=== PATIENT | female | born 1985 ===

== ENCOUNTER 2020-03-06 01:20 | Inpatient (IN) | payer BC ==
[2020-03-06] MEDS ORDERED: OXYTOCIN 20 UNITS in 0.9% NS 20 UNIT/1,000 ML INFUS.BAG IV ONE (02:18)
--- NOTE | 2020-03-06 02:22 | HP ---
Past Medical History - Admission History of Present Illness: 34 yo @ 39 6/7 wks by first trimester ultrasound, EDC 03/07/2020 complicated by: Hep C antibody positive on screen - negative RNA patient presents with chief complaint of contractions, beginning at 2130 that have increased in frequency and intensity. She reports movement, denies leakage of fluid or vaginal bleeding. History Source: Patient Limitations to Obtaining History: No Limitations - Past Medical History Cardiovascular: No: HTN Pulmonary: No: Asthma Gastrointestinal: No: GERD ...: 1 ...Para: 0 - Past Surgical History Past Surgical History: Yes: None Hx Myomectomy: No Hx Transabdominal Cerclage: No - Smoking History Have you smoked in the past 12 months: No - Alcohol/Substance Use Hx Alcohol Use: No History of Substance Use: reports: None Home Medications - Allergies Allergies/Adverse Reactions: Allergies Allergy/AdvReac Type Severity Reaction Status Date / Time No Known Allergies Allergy Verified 03/06/20 02:27 Family Medical History Family History: Denies Review of Systems - Review of Systems Constitutional: reports: No Symptoms Cardiovascular: reports: No Symptoms Gastrointestinal: reports: No Symptoms Genitourinary: reports: No Symptoms Neurological: reports: No Symptoms Psychiatric: reports: No Symptoms Physical Exam - Maternity Constitutional: Yes: Well Nourished, No Distress Neck: Yes: Supple Cardiovascular: Yes: Regular Rate and Rhythm Lungs: Clear to auscultation - Abdominal Exam/OB Number of Fetuses: Single Presentation: Vertex Contractions: Yes Regularity: Regular Intensity: Moderate Heart Rate (range): 140 Category: I Accelerations: Non-Uniform Decelerations: None - Vaginal Exam/OB Vaginal Bleeding: No Speculum Exam: Yes Dilatation (cm): 9 Effacement (%): 100 Amniotic Membrane Status: Ruptured (clear) Amniotic Fluid: Yes: Clear Presentation: Vertex/Position - Physical Exam Extremities: Yes: WNL Edema: No - Labs Lab Results: PNL: A positive, antibody negative; RPR NR; HIV neg x 2; HBS Ag neg; HCV reactive --> Neg HCG RNA (as above); Hg Erica AA; GCT 107; GBS negative Hemorrhage Risk Assessment - Risk Factors Medium Risk Factors: Yes: None High Risk Factors: Yes: None Risk Score: 1 Risk Level: Medium Risk Assessment/Plan 34 yo @ 39 6/7 wks, active labor 1. Admit to L&D 2. Routine labs and COVID swab collected and sent 3. GBS negative 4. Category I FHT 5. Declines offer for epidural 6. Will proceed with expectant management
[2020-03-06] MEDS ORDERED: ELECTROLYTE-148 SOLN 1,000 ML IV SCH (02:30)
[2020-03-06 02:31] VITALS: BMI 31.6
[2020-03-06 02:55] LABS: BASO % 0.5 % (0-2.0); EOS % 0.4 % (0-4.5); HEMATOCRIT 41.7 % (32.4-45.2); HEMOGLOBIN 13.7 GM/dL (10.7-15.3); LYMPH % 17.7 % (8-40); MCH 28.9 pg (25.7-33.7); MEAN CELL VOLUME 87.5 fl (80-96); MEAN PLT VOLUME 10.5 fl (7.5-11.1); MONO % 5.3 % (3.8-10.2); NEUT % 76.1 % (42.8-82.8); PLATELET COUNT 79 K/MM3 (134-434); RBC 4.76 M/mm3 (3.60-5.2); RDW 13.6 % (11.6-15.6); WHITE BLOOD COUNT 8.3 K/mm3 (4.0-10.0)
[2020-03-06 03:12] LABS: POTASSIUM 3.8 mmol/L (3.5-5.1)
[2020-03-06 03:14] LABS: CALCIUM 9.5 mg/dL (8.5-10.1)
[2020-03-06 03:15] LABS: BLOOD UREA NITROGEN 9.5 mg/dL (7-18)
[2020-03-06 03:17] LABS: BILIRUBIN,DIRECT 0.1 mg/dL (0.0-0.2)
[2020-03-06 03:18] LABS: CREATININE 0.6 mg/dL (0.55-1.3)
[2020-03-06 03:19] LABS: BILIRUBIN,TOTAL 0.6 mg/dL (0.2-1)
[2020-03-06 03:20] LABS: TOT PROT 7.1 g/dl (6.4-8.2)
[2020-03-06 03:48] LABS: INR 0.91 (0.83-1.09)
[2020-03-06] MEDS ORDERED: METHYLERGONOVINE MALEATE 0.2 MG/1 ML AMP IM PRN (05:09)
[2020-03-06] MEDS ORDERED: BENZOCAINE 20% 57 GM BOTTLE TP PRN (05:09)
[2020-03-06] MEDS ORDERED: BENZOCAINE 28 GM HEMORRHOIDAL OINTMENT TP PRN (05:09)
[2020-03-06] MEDS ORDERED: BISACODYL 10 MG SUPP.RECT RC PRN (05:09)
[2020-03-06] MEDS ORDERED: WITCH HAZEL 50% (TUCKS) 40 PAD/JAR PAD TP PRN (05:09)
--- NOTE | 2020-03-06 05:13 | PN ---
Delivery - Delivery Vaginal Delivery: No Problems Type of Anesthesia: None Episiotomy/Laceration: 1st degree EBL (cc): 300 Delivery, Single - Stages of Labor Date 1st Stage Initiatied: 03/05/20 Time 1st Stage Initiated: 21:30 Date 2nd Stage Initiated: 03/06/20 Time 2nd Stage Initiated: 03:26 Date of Delivery: 03/06/20 Time of Delivery: 04:29 Date Placenta Delivered: 03/06/20 Time Placenta Delivered: 04:46 Placenta: Yes: Spontaneous - Condition of Infant Gender: Male Position: Left, OA Total Hours ROM (Hrs/Mins): 2 hours / 26 minutes - 1 Minute Total Score: 8 5 Minutes Total Score: 9 - [place] Feeding Plan Initial Plan: Elected not to breastfeed exclusively throughout hospitalization Remarks - Remarks Remarks: Patient progressed to fully dilated and at 0429 via delivered a viable male in SKYE position, APGARs 8,9. Weight and length unknown at this time. Head delivered spontaneously followed by shoulders and body without difficulty. with spontaneous cry and placed on mother's abdomen. Nose and mouth was bulb suctioned. Cord was clamped and cut. Perineum and vagina examined, a first degree laceration was noted and repaired in the usual fashion. Placenta was delivered spontaneously and intact. 20 units of pitocin in 1 L IVF was given. All counts correct x 2. Mother and infant stable in LDR. EBL 300cc.
[2020-03-06] MEDS ORDERED: OXYTOCIN 20 UNITS in 0.9% NS 20 UNIT/1,000 ML INFUS.BAG IV SCH (05:15)
[2020-03-06 05:45] LABS: CORD BASE EXCESS -7.3 mmol/L (0-2); CORD HCO3 19.7 mmHg (20-29); CORD PCO2 45.1 mmHg (30-78); CORD pH 7.259 (7.14-7.44)
[2020-03-06 05:52] LABS: CORD BASE EXCESS -11.6 mmol/L (0-2); CORD HCO3 19.3 mmHg (20-29); CORD PCO2 64.6 mmHg (30-78); CORD pH 7.094 (7.14-7.44)
[2020-03-06] MEDS: IBUPROFEN 600 MG TABLET (FP) PO PRN ×3 (08:30→20:10)
[2020-03-06] MEDS: ACETAMINOPHEN 325 MG TABLET (FP) PO PRN ×3 (08:31→20:09)
[2020-03-06] MEDS: PRENATAL VITAMINS W/ FOLIC ACID TABLET (FP) PO SCH (09:25)
[2020-03-07] MEDS: ACETAMINOPHEN 325 MG TABLET (FP) PO PRN (08:27)
[2020-03-07] MEDS: IBUPROFEN 600 MG TABLET (FP) PO PRN (08:27)
[2020-03-07 08:29] LABS: BASO % 0.4 % (0-2.0); EOS % 1.3 % (0-4.5); HEMATOCRIT 34.9 % (32.4-45.2); HEMOGLOBIN 11.5 GM/dL (10.7-15.3); LYMPH % 24.7 % (8-40); MCH 29.1 pg (25.7-33.7); MEAN PLT VOLUME 11.4 fl (7.5-11.1); NEUT % 65.6 % (42.8-82.8); PLATELET COUNT 79 K/MM3 (134-434); RBC 3.97 M/mm3 (3.60-5.2); RDW 13.7 % (11.6-15.6); WHITE BLOOD COUNT 10.2 K/mm3 (4.0-10.0)
--- NOTE | 2020-03-07 09:22 | PN ---
Post Progress Note - Subjective Subjective: Patient without acute complaints. Reports tolerating oral intake without nausea or vomiting. Ambulating without dizziness. Denies fevers or chills. Pain well controlled with oral pain medication. without difficulty. Passing flatus. Type of Delivery: Vital Signs: Vital Signs Temperature 99.4 F 03/06/20 22:00 Pulse Rate 92 H 03/06/20 22:00 Respiratory Rate 18 03/06/20 22:00 Blood Pressure 120/77 03/06/20 22:00 O2 Sat by Pulse Oximetry (%) Breast Exam: Yes: Soft Uterus: Yes: Fundus Firm, Fundus below umbilicus Abdomen/GI: Yes: Abdomen soft, Passing flatus, Tolerating PO. No: Abdominal Distention, Tender Lochia: Yes: Rubra Lochia, amount: Moderate Extremities: Yes: Calves non-tender, Edema (trace) Perineum: Yes: Laceration Activity: Ambulating - Labs Labs: CBC WBC 10.2 K/mm3 (4.0-10.0) H 03/07/20 07:15 RBC 3.97 M/mm3 (3.60-5.2) 03/07/20 07:15 Hgb 11.5 GM/dL (10.7-15.3) 03/07/20 07:15 Hct 34.9 % (32.4-45.2) D 03/07/20 07:15 MCV 88.0 fl (80-96) 03/07/20 07:15 MCH 29.1 pg (25.7-33.7) 03/07/20 07:15 MCHC 33.0 g/dl (32.0-36.0) 03/07/20 07:15 RDW 13.7 % (11.6-15.6) 03/07/20 07:15 Plt Count 79 K/MM3 (134-434) L 03/07/20 07:15 MPV 11.4 fl (7.5-11.1) H 03/07/20 07:15 Absolute Neuts (auto) 6.7 K/mm3 (1.5-8.0) 03/07/20 07:15 Neutrophils % 65.6 % (42.8-82.8) 03/07/20 07:15 Lymphocytes % 24.7 % (8-40) D 03/07/20 07:15 Monocytes % 8.0 % (3.8-10.2) 03/07/20 07:15 Eosinophils % 1.3 % (0-4.5) D 03/07/20 07:15 Basophils % 0.4 % (0-2.0) 03/07/20 07:15 Nucleated RBC % 0 % (0-0) 03/07/20 07:15 Assessment/Plan 34 yo PPD # 1 s/p , afebrile, vital signs stable, doing well 1. Continue routine care. 2. AM CBC without signs of anemia 3. Rh positive status, no rhogam indicated. 4. Encourage ambulation 5. Continue oral pain medication 6. Anticipate discharge home day #2 7. Patient states desires circumcision for . Discussed risks including infection, bleeding, damage to tip of penis, and unsatisfactory result, resulting in surgical repair or repeat circumcision. Patient expressed understanding and consents to procedure. Reviewed infants chart, cleared for circumcision and normal genitalia per digital traffic coordinator, Dr. Rigoberto Herrera
[2020-03-07] MEDS: PRENATAL VITAMINS W/ FOLIC ACID TABLET (FP) PO SCH (10:30)
--- NOTE | 2020-03-07 13:44 | DS ---
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 Vital Signs: Vital Signs Temperature 99.4 F 03/06/20 22:00 Pulse Rate 92 H 03/06/20 22:00 Respiratory Rate 18 03/06/20 22:00 Blood Pressure 120/77 03/06/20 22:00 O2 Sat by Pulse Oximetry (%) Labs: CBC, BMP 03/07/20 07:15 03/06/20 02:15 Delivery - Delivery Vaginal Delivery: No Problems Type of Anesthesia: None Episiotomy/Laceration: 1st degree EBL (cc): 300 Delivery, Single - Stages of Labor Date 1st Stage Initiatied: 03/05/20 Time 1st Stage Initiated: 21:30 Date 2nd Stage Initiated: 03/06/20 Time 2nd Stage Initiated: 03:26 Date of Delivery: 03/06/20 Time of Delivery: 04:29 Time Placenta Delivered: 04:46 Placenta: Yes: Spontaneous - 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: No Infant Gender: Male Weight: 7 lb 15 oz Position: Left, OA Total Hours ROM (Hrs/Mins): 2 hours / 26 minutes - 1 Minute Total Score: 8 5 Minutes Total Score: 9 - Feeding Plan Initial Plan: Elected not to breastfeed exclusively throughout hospitalization Discharge Summary Problems reviewed: Yes Reason For Visit: LABOR ADMIT Current Active Problems Vaginal delivery (Acute) Procedures: Principal: Vaginal delivery Hospital Course: Patient was admitted in active labor and progressed to deliver a viable male infant via Patient fulfilled all criteria for discharge home and desired DC home on PPD # 1, Condition: Good - Instructions Diet, Activity, Other Instructions: Physical activity Resume your normal everyday activity as tolerated no heavy lifting or exercise until seen by your surgeon. You may walk unlimited penny of and climb stairs. You may resume driving the car when you feel safe and comfortable behind the wheel. No sexual activity as instructed. Diet There are no dietary restrictions. Eat healthy, high-fiber foods. Drink 6 to 8 glasses of liquid each day. This will assist in keeping your bowels are regular. Pain management You may take Tylenol or acetaminophen or Ibuprofen (for example, Motrin, Advil etc.) for moderate to severe pain. Call MD for any of the following: Severe pain not relieved by medication Fever of 101 or higher Excessive bleeding or drainage on dressing Inability to urinate Referrals: Hermes Barnett MD [Staff Physician] - Disposition: HOME
[2020-03-07 14:56] VITALS: BP 119/66; PULSE 84; TEMP 98.8
[2020-03-07] MEDS ORDERED: SENNOSIDES/DOCUSATE COMBO (SENNA PLUS) TABLET (UD) PO PRN (22:00)
== END 2020-03-07 15:50 | disposition home or self-care (01) | DRG 807 ==
LOC: JLDR 01:20 → J3W 06:30
PROVIDERS: ADMIT Obstetrics & Gynecology; ATTEND Obstetrics & Gynecology
PROC: 10E0XZZ Delivery of Products of Conception, External Approach (ICD-10-PCS; principal; 2020-03-06)
PROC: 0HQ9XZZ Repair Perineum Skin, External Approach (ICD-10-PCS; 2020-03-06)
DX: O70.0 First degree perineal laceration during delivery (principal); Z37.0 Single live birth; Z3A.39 39 weeks gestation of pregnancy
CPT/HCPCS: 36415; 36600; 59409; 80048; 80076; 82803; 85025; 85610; 86780; 86850; 86900; 86901; C9803; U0003